=== PATIENT | male | born 1965 | race Caucasian/White ===

== ENCOUNTER 2024-10-22 09:26 | Day surgery (SDC) | payer OTHER ==
[2024-10-22] VITALS (13 sets, daily range): BP systolic 110–138; BP diastolic 75–102
[~2024-10-22] VITALS: Ht 188 cm; Wt 90.8 kg
[~2024-10-22 09:26] MED LIST: DOXA4 PO; Lactated Ringer's 1,000 ML IV SCH; MELO7.5
[2024-10-22] MEDS ORDERED: ZANAFLEX413 PO (09:44)
[2024-10-22] MEDS ORDERED: CELEBREX200 MG PO (09:44)
[2024-10-22] MEDS ORDERED: Flonase 0.05% N16 GM (09:45)
[2024-10-22] MEDS ORDERED: LORA10ER PO (09:46)
--- NOTE | 2024-10-22 09:56 | NUR ---
10/22/24 0956 Suri Reilly CONFIRMED AND REVIEWED H&P, MEDCICATIONS, ALLERGIES, MEDICAL HISTORY, RESPIRATORY HISTORY, VITAL SIGNS, 3-LEAD EKG, CONSENTS, AND PHYSICIAN ORDERS. PATIENT CONFIRMS NPO STATUS AND AGREES WITH SCHEDULED PROCEDURE. MONITOR INTACT WITH CONTINUOUS PULSE OXIMETRY, CAPNOGRAPHY, 3-LEAD EKG, INTERMITTENT BP. SUPPLEMENTAL O2 TO BE TITRATED THROUGHOUT PROCEDURE TO MAINTAIN O2 SATURATION ABOVE 90%. PATIENT DETERMINED TO BE ASA APPROPRIATE FOR PROPOFOL SEDATION PRIOR TO START OF PROCEDURE BY DR. HO
[2024-10-22] MEDS ORDERED: Benzocaine Oral Spray 0.5ML UD ONE (09:57)
[2024-10-22] MEDS ORDERED: propofoL 20 ML IV ONE (09:57)
--- NOTE | 2024-10-22 09:57 | NUR ---
History, Chart, Medications and Allergies reviewed before start of procedure. Patient confirms NPO status and agrees with scheduled surgery. at bedside per patient request.
--- NOTE | 2024-10-22 10:59 | NUR ---
Patient up to Ambulate independently. Gait steady. Discharge instructions reviewed with patient. Patient verbalizes understanding. Copy given to patient to take home, WELL . Patient States Post-Procedure ride home has been arranged. Discharged via wheelchair to private car for ride home. PT TOLERATING PO, REPORTS READY TO GO HOME.
== END 2024-10-22 11:00 | disposition home or self-care (01) ==
LOC: ORSCMMR 09:26 → ORD 10:30 → ORSCMMR 10:30
PROVIDERS: Internal Medicine Gastroenterology
PROC: 0DB58ZX Excision of Esophagus, Via Natural or Artificial Opening Endoscopic, Diagnostic (ICD-10-PCS; principal; 2024-10-22 10:30)
PROC: 0D758ZZ Dilation of Esophagus, Via Natural or Artificial Opening Endoscopic (ICD-10-PCS; principal; 2024-10-22 10:30)
PROC: 0DB48ZX Excision of Esophagogastric Junction, Via Natural or Artificial Opening Endoscopic, Diagnostic (ICD-10-PCS; principal; 2024-10-22 10:30)
DX: R13.10 Dysphagia, unspecified (principal); K21.00 Gastro-esophageal reflux disease with esophagitis, without bleeding; Z79.899 Other long term (current) drug therapy
CPT/HCPCS: 82947; 88305; 88312; A9270; C1726; J2704; J7120